=== PATIENT | female | born 1940 | race African-American/Black ===

== ENCOUNTER → 2017-03-06 | Outpatient (CLI) | payer MEDICARE, MEDICAID ==
[~2017-03-06] MED LIST: ALLO100T30 PO; AMIT10TA PO; ASPI-650 PO; DONE5TAB7 PO; FLUT1DIS5 IH; FURO-93 PO; GABA100C8 PO; HYDR-3341 PO; LETR2.5T PO; LEVO150T5 PO; LEVO50TA5 PO; METH500T7 PO; OLOP2.5D OP; OMEP10CA4 PO; PHEN50TA4 PO; TRIA1CAP3 PO
== END | disposition home or self-care (01) ==
LOC: RAD 11:01
PROVIDERS: ATTEND Internal Medicine Hematology & Oncology
DX: N20.0 Calculus of kidney (principal); Z85.3 Personal history of malignant neoplasm of breast; Z90.49 Acquired absence of other specified parts of digestive tract; Z98.84 Bariatric surgery status
CPT/HCPCS: 71250; 74176

== ENCOUNTER → 2017-03-20 | Outpatient (CLI) | payer MEDICARE, MEDICAID | END | disposition home or self-care (01) | LOC: CFH 13:27 | PROVIDERS: ATTEND Surgery | DX: Z01.818 Encounter for other preprocedural examination (principal); R22.32 Localized swelling, mass and lump, left upper limb ==